=== PATIENT | female | born 1995 | race Hispanic/Latino ===

== ENCOUNTER 2020-03-07 09:44 | Outpatient (CLI) | payer OTHER ==
--- NOTE | 2020-03-07 12:49 | ULT ---
PELVIC ULTRASOUND: Transabdominal ultrasound of pelvis performed. INDICATION: Left pelvic pain. FINDINGS: Uterus has a normal sonographic appearance. Uterine measurements were recorded at 9.2 x 3.3 x 4.7 cm . The endometrial stripe appears normal measuring 6 mm. Both ovaries are identified and appear unremarkable. There is a right ovarian cyst measuring 2.0 to 2.5 cm. Color Doppler with spectral analysis demonstrates blood flow to both ovaries. No free fluid . IMPRESSION: Small right ovarian cyst. Pelvic ultrasound otherwise unremarkable. POS: [facility]W
== END 2020-03-07 09:45 | disposition home or self-care (01) ==
LOC: BICULT 09:44
PROVIDERS: ATTEND Nurse Practitioner Women's Health
DX: R10.2 Pelvic and perineal pain (principal); N83.201 Unspecified ovarian cyst, right side
CPT/HCPCS: 76856; 93976

== ENCOUNTER 2020-05-08 09:47 | Outpatient (CLI) | payer OTHER ==
--- NOTE | 2020-05-08 10:48 | ULT ---
Exam: Pelvic ultrasound HISTORY: Ovarian cyst. COMPARISON: 03/07/2020 TECHNIQUE: Multiple grayscale and color Doppler images were obtained in a transabdominal and transvag inal pelvic ultrasound. Spectral analysis of the Doppler waveforms of the ovaries were performed. FINDINGS: CERVIX: Grossly normal in appearance. UTERUS: Normal in size without focal abnormality. ENDOMETRIAL STRIPE: 4 mm which is within normal limits for a normal menstruating female patient. No f luid or fluid collection is seen in the endometrial canal. No free fluid is present. RIGHT OVARY: Small hypoechoic cystic structure seen in the right ovary measuring 8 mm likely related to a follicle. Flow is present in the right ovary. Previously seen right ovarian cyst on prior examination is not seen. LEFT OVARY:Approximately 8 mm anechoic structure left ovary likely due to dominant follicle. Arterial flow is present in the left ovary. IMPRESSION: Normal-appearing uterus and bilateral ovaries.
== END 2020-05-08 09:48 | disposition home or self-care (01) ==
LOC: BICULT 09:47
PROVIDERS: ATTEND Nurse Practitioner Women's Health
DX: N83.201 Unspecified ovarian cyst, right side (principal)
CPT/HCPCS: 76856